=== PATIENT | female | born 1985 ===

== ENCOUNTER 2020-08-28 22:38 | Observation (INO) | payer SELFPAY ==
[~2020-08-28] VITALS: Ht 149.9 cm; Wt 54.4 kg
[~2020-08-28 22:38] MED LIST: AMOX500 PO; CEPH500 PO; DOXY100 PO; HYDACE5 PO; METR500 PO; MULVITMINE; MULVITMINE PO; OMEP20ER PO; OXYACE5T PO; PHENA200 PO; PROCODE120 PO; PROM25 PO; SULTRIDS PO
[2020-08-28 23:13] LABS: BASOPHILS ABSOLUTE AUTO 0.05 K/mm3 (0.00-0.23); BASOPHILS PERCENT AUTO 1 % (0-2); EOSINOPHILS ABSOLUTE AUTO 0.08 K/mm3 (0.00-0.68); EOSINOPHILS PERCENT AUTO 1 % (0-6); Hematocrit 40.7 % (33.0-51.0); Hemoglobin 13.7 g/dL (11.5-16.0); IMMATURE GRAN ABSOLUTE AUTO 0.01 K/mm3 (0.00-0.10); IMMATURE GRAN PERCENT AUTO 0 % (0-1); LYMPHOCYTES ABSOLUTE AUTO 2.67 K/mm3 (0.84-5.20); LYMPHOCYTES PERCENT AUTO 37 % (21-46); MONOCYTES ABSOLUTE AUTO 0.41 K/mm3 (0.16-1.47); MONOCYTES PERCENT AUTO 6 % (4-13); Mean Corpuscular HGB 29.5 pg (26.0-34.0); Mean Corpuscular HGB Conc 33.7 g/dL (31.5-36.5); Mean Corpuscular Volume 88 fL (80-100); Mean Platelet Volume 9.6 fL (9.1-12.4); NEUTROPHILS ABSOLUTE AUTO 3.95 K/mm3 (1.96-9.15); NEUTROPHILS PERCENT AUTO 55 % (41-73); Platelet Count 307 K/mm3 (150-400); RDW Coefficient Variation 12.8 % (11.7-14.2); RDW Standard Deviation 40.8 fL (35.1-46.3); Red Blood Cell Count 4.65 M/mm3 (3.80-5.20); White Blood Cell Count 7.17 K/mm3 (4.00-11.30)
[2020-08-28 23:35] LABS: Alanine Aminotransfer (ALT/SGP 121 U/L (12-78); Albumin, Blood 4.3 g/dL (3.4-5.0); Albumin/Globulin Ratio 1.2 (0.8-1.8); Alk Phos 85 U/L (50-136); Anion Gap 6 mmol/L (6-16); Aspartate Aminotrans (AST/SGOT 98 U/L (12-37); Bilirubin, Total 0.5 mg/dL (0.1-1.0); Blood Urea Nitrogen 7 mg/dL (8-24); Bun/Creatinine Ratio 14.7 (12.0-20.0); CO2, Blood 27 mmol/L (21-32); Calcium, Blood 8.6 mg/dL (8.5-10.1); Chloride, Blood 106 mmol/L (98-108); Creatinine, Blood 0.48 mg/dL (0.40-1.00); Globulin, Blood 3.7 g/dL (2.2-4.0); Glomerular Filtration Rate >60 (60-); Glucose, Blood 93 mg/dL (70-99); Potassium, Blood 3.4 mmol/L (3.5-5.5); Sodium, Blood 139 mmol/L (136-145)
[2020-08-29 01:23] LABS: Source, Urine Clean Catch
[2020-08-29 01:27] LABS: Bilirubin, Urine Neg (Neg); Blood, Urine Neg (Neg); Glucose Qualitative, Urine Neg (Neg); Ketones, Urine Neg (Neg); Leukocyte Esterase, Urine Neg (Neg); Nitrite, Urine Neg (Neg); Protein, Urine Neg (Neg); Specific Gravity, Urine 1.005 (1.003-1.022); Urobilinogen, Urine NORM (Normal); pH, Urine 6.5 (5.0-8.0)
[2020-08-29 01:29] LABS: Appearance, Urine Clear (Clear); Color, Urine Pale Yellow (P-Yellow)
[2020-08-29 05:00] LABS: Influenza A, PCR NEGATIVE (NEGATIVE); Influenza B, PCR NEGATIVE (NEGATIVE); Resp Syncytial Virus, PCR NEGATIVE (NEGATIVE); SARS-Cov-2 (COVID-19) PCR, MMC NEGATIVE (NEGATIVE)
--- NOTE | 2020-08-29 05:00 | NUR ---
SHIFT SUMMARY PT ADMITTED AT 0315 FOR CHOLECYSTITIS. ORIENTED TO ROOM, CALL LIGHT, AND SAFETY MEASURES. PT IS A/O X4, IND/SBA IN ROOM. PT INSTRUCTED ON NPO STATUS FOR SURGERY; MOUTH SWABS PROVIDED. IV FLUIDS STARTED. PT MED WITH 0.5MG DILAUDED FOR PAIN. DENIES NAUSEA. S/O AT BEDSIDE UPON ARRIVAL. PT RESTING IN BED, CALL LIGHT IN REACH.
--- NOTE | 2020-08-29 13:45 | NUR ---
PT LEFT FOR SURGERY, JEWELRY REMOVED AND PLACED IN PATIENTS PURSE PRIOR TO LEAVING.
--- NOTE | 2020-08-29 14:57 | NUR ---
08/29/20 1457 Rober Santizo PT ON SCHEDULED ANTIBIOTICS
--- NOTE | 2020-08-29 16:28 | NUR ---
RETURN FROM SURGERY PT RETURNED FROM SURGERY TO HER ROOM AAO X4. 4 LAP SITES. STERI STRIPS C/D/I. PT BREATHING WITHOUT LABOR ON ROOM AIR. SLID ONTO HOSPITAL BED. PT IS RESTING IN BED STILL TIRED FROM SURGERY. PT REPORTS FEELING CHILLED. PLACED BLANKETS ON PT. PT STATES NO NAUSEA OR PAIN CURRENTLY. VITALS ASSESSED. PT REPORTS SOME BLURRY VISION. LIGHTS OFF FOR COMFORT. CALL LIGHT IN REACH. SIGNIFICANT OTHER CALLED PER REQUEST.
--- NOTE | 2020-08-29 18:31 | NUR ---
SHIFT SUMMARY PT IS AAO X4, RESTING IN BED. REPORTS SOME PAIN IN BACK WELL RIGHT UPPER ABD. MEDICATED PER EMAR. PT IS TOLERATING SMALL SIPS. DENIES NAUSEA.
--- NOTE | 2020-08-29 19:45 | NUR ---
RECEIVED REPORT AND ASSUMED CARE OF PT. SHE IS LYING QUIETLY IN BED, ALERT. DENIES ANY NEEDS AT THIS TIME.
--- NOTE | 2020-08-30 03:42 | NUR ---
SHIFT SUMMARY: SENIA IS A&OX4. VSS, NO ACUTE EVENTS OVERNIGHT. SHE REPORTS ADEQUATE PAIN CONTROL WITH 1 MG OF DILAUDID IV. SHE WAS ENCOURAGED TO TRY THE ORAL PAIN MEDICATION AND STATES THAT SHE WILL TRY IT, EXPLAINING THAT SHE WAS CAUTIOUS D/T THE JELLO CAUSING NAUSEA AND WORRY THAT THE PAIN PILL WOULD CAUSE NAUSEA/VOMITING. LAP SITES X 4 TO ABDOMEN C/D&I. SHE IS TOLERATING PO INTAKE WELL AT THIS TIME, ADVANCING HER DIET SLOWLY. SHE IS URINATING WITHOUT DIFFICULTY AND REPORTS PASSING GAS. SO AT BEDSIDE. SHE IS INDEPENDENT TO THE BATHROOM. SHE IS LYING IN BED WITH THE CALL LIGHT IN REACH. WILL REPORT TO DAY SHIFT RN.
[2020-08-30] MEDS ORDERED: HYDR1TAB94 PO (11:46)
--- NOTE | 2020-08-30 15:10 | NUR ---
DISCHARGE SUMMARY PT AAO X4. IV REMOVED. WENT OVER DISCHARGE INSTRUCTIONS WITH PT AND BOYFRIEND. PT TOLERATING FOOD AND FLUIDS PO WELL. NO N/V REPORTED BY PT. PT MEDICATED FOR PAIN PER EMAR PRIOR TO DISCHARGE. PT TOOK A SHOWER PRIOR TO DISCHARGE. DISCHARGE RX'S SENT WITH AND FILLED BY PT'S BOYFRIEND. PT'S BELONGINGS SENT WITH PT'S BOYFRIEND WHEN HE WENT TO GET CAR. PT WHEELED OUT TO CAR IN WHEELCHAIR.
== END 2020-08-30 14:57 | disposition home or self-care (01) ==
LOC: ER 22:38 → SURS 22:39
PROVIDERS: Emergency Medicine; ADMIT Surgery
PROC: 0FT44ZZ Resection of Gallbladder, Percutaneous Endoscopic Approach (ICD-10-PCS; principal; 2020-08-29 13:30)
PROC: BF00YZZ Plain Radiography of Bile Ducts using Other Contrast (ICD-10-PCS; principal; 2020-08-29 13:30)
DX: K80.10 Calculus of gallbladder with chronic cholecystitis without obstruction (principal); Z20.822 Contact with and (suspected) exposure to COVID-19
CPT/HCPCS: 0241U; 76705; 80053; 81003; 81025; 83690; 85025; 96365; 96374; 96375; 96376; 99285-25; A9270; A9270-GY; C1729; G0378; J1100; J1170; J1885; J2250; J2270; J2370; J2405; J2543; J2704; J2710; J3010; J7050; J7120

== ENCOUNTER 2020-09-29 14:42 | Emergency (ER) | payer OTHER ==
[~2020-09-29] VITALS: Ht 149.9 cm; Wt 54.0 kg
[~2020-09-29 14:42] MED LIST changes: +HYDR1TAB94 PO
[2020-09-29] MEDS ORDERED: BENZ100A PO (16:42)
[2020-11-24] MEDS ORDERED: Neurontin 300300 MG PO (06:59)
[2020-11-24] MEDS ORDERED: Naltrexone HCl50 MG PO (06:59)
== END 2020-09-29 16:50 | disposition home or self-care (01) ==
LOC: ER 14:42
DX: J20.9 Acute bronchitis, unspecified (principal); J31.0 Chronic rhinitis
CPT/HCPCS: 99283

== ENCOUNTER 2020-11-24 05:23 | Emergency (ER) | payer OTHER | END 2020-11-24 08:05 | disposition home or self-care (01) | LOC: ER 05:23 | DX: R25.1 Tremor, unspecified (principal); R74.01 Elevation of levels of liver transaminase levels; F10.10 Alcohol abuse, uncomplicated; F17.290 Nicotine dependence, other tobacco product, uncomplicated ==

== ENCOUNTER 2021-02-10 02:16 | Emergency (ER) | payer OTHER ==
[~2021-02-10] VITALS: Ht 149.9 cm; Wt 52.2 kg
[~2021-02-10 02:16] MED LIST changes: +BENZ100A PO; +Naltrexone HCl50 MG PO; +Neurontin 300300 MG PO
[2021-02-10 03:08] LABS: BASOPHILS ABSOLUTE AUTO 0.06 K/mm3 (0.00-0.23); BASOPHILS PERCENT AUTO 1 % (0-2); EOSINOPHILS ABSOLUTE AUTO 0.05 K/mm3 (0.00-0.68); EOSINOPHILS PERCENT AUTO 1 % (0-6); Hematocrit 39.7 % (33.0-51.0); Hemoglobin 13.4 g/dL (11.5-16.0); IMMATURE GRAN ABSOLUTE AUTO 0.01 K/mm3 (0.00-0.10); IMMATURE GRAN PERCENT AUTO 0 % (0-1); LYMPHOCYTES ABSOLUTE AUTO 2.38 K/mm3 (0.84-5.20); LYMPHOCYTES PERCENT AUTO 48 % (21-46); MONOCYTES PERCENT AUTO 8 % (4-13); Mean Corpuscular HGB 29.3 pg (26.0-34.0); Mean Corpuscular HGB Conc 33.8 g/dL (31.5-36.5); Mean Corpuscular Volume 87 fL (80-100); Mean Platelet Volume 9.6 fL (9.1-12.4); NEUTROPHILS ABSOLUTE AUTO 2.07 K/mm3 (1.96-9.15); NEUTROPHILS PERCENT AUTO 42 % (41-73); Platelet Count 261 K/mm3 (150-400); RDW Coefficient Variation 13.3 % (11.7-14.2); RDW Standard Deviation 42.5 fL (35.1-46.3); Red Blood Cell Count 4.57 M/mm3 (3.80-5.20); White Blood Cell Count 4.97 K/mm3 (4.00-11.30)
[2021-02-10 03:20] LABS: Alanine Aminotransfer (ALT/SGP 86 U/L (12-78); Albumin, Blood 3.9 g/dL (3.4-5.0); Alk Phos 79 U/L (50-136); Anion Gap 8 mmol/L (6-16); Aspartate Aminotrans (AST/SGOT 112 U/L (12-37); Bilirubin, Total 0.3 mg/dL (0.1-1.0); Blood Urea Nitrogen 6 mg/dL (8-24); Bun/Creatinine Ratio 13.2 (12.0-20.0); CO2, Blood 27 mmol/L (21-32); Calcium, Blood 8.5 mg/dL (8.5-10.1); Chloride, Blood 105 mmol/L (98-108); Creatinine, Blood 0.45 mg/dL (0.40-1.00); Ethanol (Alcohol), Blood, Med 276 mg/dL; Globulin, Blood 4.1 g/dL (2.2-4.0); Glomerular Filtration Rate >60 (60-); Glucose, Blood 99 mg/dL (70-99); Potassium, Blood 3.4 mmol/L (3.5-5.5); Sodium, Blood 140 mmol/L (136-145)
== END 2021-02-10 03:33 | disposition home or self-care (01) ==
LOC: ER 02:16
PROVIDERS: Student in an Organized Health Care Education/Training Program
DX: F10.129 Alcohol abuse with intoxication, unspecified (principal); Y90.8 Blood alcohol level of 240 mg/100 ml or more
CPT/HCPCS: 36415; 80053; 85025; 99283; G0480

== ENCOUNTER → 2021-11-17 | Outpatient (CLI) | payer OTHER ==
[~2021-11-17] MED LIST changes: +CHLO25 PO
== END | disposition home or self-care (01) ==
LOC: LAB 15:03 → LAB SHORT 15:03
DX: J02.9 Acute pharyngitis, unspecified (principal); R31.9 Hematuria, unspecified
CPT/HCPCS: 87081; 87086; 87147

== ENCOUNTER → 2022-05-26 | Outpatient (CLI) | payer OTHER | END | disposition home or self-care (01) | LOC: LAB 16:22 → LAB SHORT 16:22 | DX: N76.0 Acute vaginitis (principal) | CPT/HCPCS: 87086 ==